=== PATIENT | male | born 1955 | race Caucasian/White ===

== ENCOUNTER 2020-06-18 00:56 | Outpatient (CLI) | payer OTHER, SELFPAY ==
[2020-06-18 18:41] LABS: SARS-CoV-2 RNA PCR Negative
== END 2020-06-18 00:57 | disposition home or self-care (01) ==
LOC: ANHCOVIDDT 00:56
PROVIDERS: PCP Family Medicine; Visit Provider Specialist
DX: Z01.812 Encounter for preprocedural laboratory examination (principal); Z20.828 Contact with and (suspected) exposure to other viral communicable diseases
CPT/HCPCS: 87635; C9803; U0003

== ENCOUNTER 2020-06-20 05:29 | Day surgery (SDC) | payer OTHER, SELFPAY ==
[2020-06-19 16:07] VITALS: BMI 33.7
[2020-06-20] VITALS (22 sets, daily range): BP systolic 121–159; BP diastolic 71–108; PULSE 61–81; RESP 11–18; TEMP 36.4–36.6; O2SAT 97–99; BMI 33.7
[2020-06-20 09:28] LABS: Basophils Percent Auto 0.7 % (0.2-1.2); Eosinophils Absolute Auto 0.2 K/mm3 (0-0.3); Eosinophils Percent Auto 4.2 % (0-4.4); Hematocrit 39.8 % (42.0-52.0); Hemoglobin 13.4 g/dL (14.0-18.0); Immature Granulocyte Absolute 0.03 K/mm3 (0.00-0.031); Immature Granulocyte Percent A 0.5 % (0-0.5); Lymphocytes Absolute Auto 1.24 K/mm3 (0.9-3.2); Lymphocytes Percent Auto 22.5 % (18.3-44.2); Mean Corpuscular HGB Conc 33.7 g/dl (32-36); Mean Corpuscular Hemoglobin 29.1 pg (26-34); Mean Corpuscular Volume 86.5 fl (80-100); Mean Platelet Volume 9.3 fl (7.4-10.4); Monocytes Absolute Auto 0.4 K/mm3 (0.1-0.6); Monocytes Percent Auto 7.6 % (2.6-8.5); Neutrophils Absolute Auto 3.5 K/mm3 (1.3-6.7); Neutrophils Percent Auto 64.5 % (45.5-73.1); Platelet Count Result 276 k/mm3 (150-375); Red Cell Distribution Width 12.9 % (11.5-14.5); White Blood Count 5.5 K/mm3 (4.5-10.0)
[2020-06-20 09:36] LABS: Prothrombin Time 13.2 Seconds (11.1-14.7)
[2020-06-20 09:41] LABS: Anion Gap 9 mmol/L (8-16); Blood Urea Nitrogen 16 mg/dL (9-20); Calcium 9.1 mg/dL (8.4-10.2); Carbon Dioxide 22 mmol/L (22-30); Chloride 106 mmol/L (98-107); Estimated CRCL calculation 81 ml/min; Estimated Glomerular Filt Rate > 60; Glucose 109 mg/dL (75-110); Potassium 3.9 mmol/L (3.4-5.0); Sodium 137 mmol/L (137-145)
--- NOTE | 2020-06-20 13:00 | WPDMODSED ---
Moderate Sedation Note-Pt Data Patient Data Diagnosis: Exertional chest discomfort with hypotension abnormal nuclear stress test Present Complaint: symptoms of chest discomfort dyspnea and hypotension with exercise / yd work Procedure to be performed/Plan: left heart catheterization Allergies Allergy/AdvReac Type Severity Reaction Status Date / Time Penicillins Allergy Unknown Unknown Verified 11/20/19 09:59 Home Medications Medication Instructions Recorded Confirmed Type cholecalciferol (vitamin D3) 125 5,000 unit PO DAILY 11/20/19 06/20/20 History mcg (5,000 unit) tablet tamsulosin 0.4 mg capsule 0.4 mg PO DAILY 11/20/19 06/20/20 History vardenafil 20 mg tablet 20 mg PO PRN 11/20/19 06/20/20 History zolpidem 10 mg tablet 10 mg PO .QHS tablet 11/20/19 06/20/20 History fenofibric acid (choline) 135 mg 135 mg PO DAILY #90 cap 03/26/20 06/20/20 Rx capsule,delayed release aspirin 81 mg PO DAILY 06/20/20 06/20/20 History cetirizine [Zyrtec] 10 mg PO DAILY 06/20/20 06/20/20 History fenofibric acid (choline) 135 mg PO DAILY 06/20/20 06/20/20 History [Trilipix] Current Medications: Active Medications Sodium Chloride (Normal Saline Iv) 500 mls @ 100 mls/hr IV CONT .Q5H YONAS Sedation/Anesthesia: No previous sedation/anesthesia problems (including family history). [facility] Past Medical History Medical History (Updated 06/11/20 @ 10:28 by Alber Muller PA-C) Dizziness Encounter for colorectal cancer screening Tachycardia Family History Family History (Updated 06/04/16 @ 23:19 by DOCTOR UNKNOWN) Mother Hypertension Sibling Family history of malignant neoplasm Family history of malignant neoplasm of breast in first degree relative Social History Social History (Updated 11/20/19 @ 10:01 by Dorothy Lua) Smoking packs per day: 0 Smoking cigarettes per day: 0.0 Smoking status: Never smoker Second hand tobacco smoke exposure: No Alcohol intake: current Substance use: never Substance use type: does not use Living arrangements: alone Gender identity (if verbalized by the patient): Male Mod Sed Physical Exam Physical Exam Pre Procedural Exam: Normal: Throat, Airway, Lungs, Heart Size, Heart Rate, Heart Rhythm, Neuro Exam and Extremities and Variation: Appearance ( overweight white male BMI 33.8) Hours since solid foods: 12 Hours since liquid intake: 12 Internal Medicine - PN: Obj Da Vital Signs Vital Signs: Vital Signs - 24 hr 06/20/20 09:25 Temperature 36.6 C Pulse Rate 74 Respiratory Rate 15 Blood Pressure 129/84 Pulse Oximetry 98 Meds/Results Medications: Active Medications Generic Name Dose Route Start Last Admin Trade Name Pamela PRN Reason Stop Dose Admin Sodium Chloride 500 mls @ 100 mls/hr 06/20/20 06:00 Normal Saline Iv IV CONT .Q5H YONAS Labs CBC & Chem 7: 06/20/20 09:20 06/20/20 09:20 Labs: Laboratory Results - last 24 hr 06/20/20 06/20/20 06/20/20 09:20 09:20 09:20 WBC 5.5 RBC 4.60 Hgb 13.4 L Hct 39.8 L MCV 86.5 MCH 29.1 MCHC 33.7 RDW 12.9 Plt Count 276 MPV 9.3 Immature Gran % (Auto) 0.5 Neut % (Auto) 64.5 Lymph % (Auto) 22.5 Pickett % (Auto) 7.6 Eos % (Auto) 4.2 Baso % (Auto) 0.7 Lymph # (Auto) 1.24 Pickett # (Auto) 0.4 Eos # (Auto) 0.2 Baso # (Auto) 0.0 Abs Immat Gran (auto) 0.03 Absolute Neuts (auto) 3.5 Absolute Nucleated RBC 0.0 Nucleated RBC % 0.0 PT 13.2 INR 1.0 Sodium 137 Potassium 3.9 Chloride 106 Carbon Dioxide 22 Anion Gap 9 BUN 16 Creatinine 1.00 Estim Creat Clear Calc 81 Estimated GFR > 60 Glucose 109 Calcium 9.1 ASA Classification/Sedation ASA Classification/Sedation ASA Class: II Emergent: No Risks: Risks, benefits and alternatives explained and patient/family accepted plan for sedation. Patient re-evaluated immediately prior to sedation.
--- NOTE | 2020-06-20 13:03 | ECG_ITS ---
Measurements Intervals [place] Rate: 75 P: 36 MA: 197 QRS: 30 QRSD: 91 T: 11 QT: 375 QTc: 420 Interpretive Statements SINUS RHYTHM BASELINE ARTIFACT- I, III, AVR, AVL, AVF, V1-V2 BORDERLINE ECG Electronically Signed On 06-20-2020 13:43:40 CDT by Kwesi Avery D.O.
--- NOTE | 2020-06-20 13:07 | WPDCARDPROC ---
Cardiac Cath Procedure Note Date of procedure:: 06/20/20 Performing physician:: Alber Sofia MD Indication:: chest discomfort, hypotension with exertion abnormal nuclear stress test Brief clinical history:: this is a 65-year-old man without previous documented coronary disease who has been experiencing exertional fatigue/ chest pain and has observed hypotension following exertion with a home blood pressure cuff. A nuclear stress test was abnormal suggesting inferior ischemia. Angiography was then recommended. Procedure Procedure performed:: Left heart catheterization with left ventriculography, coronary angiography and percutaneous revascularization Sedation/Medication given:: fentanyl 50 mg Versed 2 mg case start time 12:20 p.m. case end time 12:58 p.m. sedation provided by Ashli Bajwa RN, trained observer Access site:: right femoral artery Estimated blood loss:: 15-20 cc Procedure note:: patient brought to the catheterization lab in the postabsorptive state where the right femoral triangle was prepared in the normal fashion. Anesthesia was provided with 1% lidocaine locally. Using modified Seldinger technique the right common femoral artery was punctured and a 5 [place] vascular sheath was placed. A 5 [place] angled pigtail catheter was used to measure left-sided hemodynamics and injected LV g in the ER AO projection. Following this standard 5 [place] FL4 catheter was used to engage inject the left coronary artery for angiography in multiple projections. Following this a 5 [place] JR4 catheter was to engage inject the right coronary artery. The cine angiograms were then reviewed and PCI of the circumflex was recommended and carried out as detailed below. Following this the sheath was sutured into position he was taken to the holding area for recovery. Prior to starting PCI he was systemically anticoagulated with bolus and infusion of Angiomax and he received aspirin and Brilinta 180 mg orally for anti-platelet therapy. Findings:: Central aortic pressure was 138 over 78 left ventricle 138/2 end-diastolic pressure 15. There was no gradient upon pullback across the aortic valve. The left ventricle is normal in size all segments in the CLARKE projection contract well. The global ejection fraction is visually estimated to be 55%. The left main coronary artery is widely patent the LAD is a moderate caliber artery extending down to the apex. There is minimal luminal irregularity in the LAD but no significant lesions in the LAD itself. There is about 60-70% stenosis at the ostium of a small mid diagonal branch and about 70% stenosis and a sub branch of this diagonal which is a bifurcating vessel. Circumflex is a large caliber artery there are 2 very small proximal marginal branches and a very large 3rd marginal branch. Following this there is a posterior circumflex vessel as well. The circumflex trunk just prior to the bifurcation of the large marginal and the posterior branch has a eccentric stenosis of 80%. This jeopardized is a very large 3rd OM branch as described above. Right coronary artery is a medium caliber artery it is dominant to the posterior circulation. There is mild long tubular stenosis in the RCA from the 1st portion down to the 2nd portion. This represents no more than about 30-40% stenosis and has NAN 3 flow does not appear to be flow limiting. circumflex intervention was carried out using a 6 [place] CLS 3.5 guiding catheter. The wire used was a 0.014 BMW. This was placed into the large OM branch. The lesion was pre-dilated with a 3.5 x 15 mm emerge balloon. The lesion was then stented using a 3.5 x 15 mm Wanderableiro sirolimus eluting stent with a very good anatomical result. The stent was placed just prior to the bifurcation of the trunk into the large 3rd OM in the posterior circumflex. Conclusion:: 1. Coronary artery disease with high-grade stenosis in the trunk of the circumflex which is just bonnie
--- NOTE | 2020-06-20 18:09 | SUR.PHASEII ---
1730-pt transferred to IMU room 210. JOSÉ ANTONIO Beyer has assumed care of pt. Groin soft and non-tender, no evidence of bleeding or hematoma noted. strong right pedal pulse noted. No distress noted upon transfer.
--- NOTE | 2020-06-20 19:02 | PC.NURSE ---
Received patient from chest pain center. Patient A&O x3. Groin site soft, nontender, no bleeding. patient on room air and on bed rest until 22:30
[2020-06-20] MEDS: SODIUM CHLORIDE 0.9% IV 1,000 ML 125 ML IV CONT (23:21)
[2020-06-20] MEDS: TICAGRELOR 90 MG TABLET PO (23:22)
[2020-06-20] MEDS: METOPROLOL TARTRATE 25 MG TABLET PO (23:24)
[2020-06-20] MEDS: ZOLPIDEM TARTRATE 5 MG TABLET 10 MG PO (23:27)
[2020-06-21] VITALS: PULSE 73
[2020-06-21 02:00] VITALS: PULSE 74
[2020-06-21 04:00] VITALS: BP 131/79; PULSE 75; RESP 16; TEMP 36.1; O2SAT 98
--- NOTE | 2020-06-21 05:11 | ECG_ITS ---
Measurements Intervals [place] Rate: 74 P: 17 MT: 198 QRS: 10 QRSD: 92 T: 22 QT: 366 QTc: 408 Interpretive Statements SINUS RHYTHM LOW QRS VOLTAGE IN PRECORDIAL LEADS DELAYED PRECORDIAL R/S TRANSITION BORDERLINE ECG Electronically Signed On 06-21-2020 8:04:50 CDT by Kwesi Avery D.O.
[2020-06-21 06:00] VITALS: PULSE 70
[2020-06-21 08:00] VITALS: BP 118/73; PULSE 74; PULSE 76; RESP 16; TEMP 36.5; O2SAT 97
[2020-06-21] MEDS: ROSUVASTATIN 10 MG TABLET PO (08:43)
[2020-06-21] MEDS: TICAGRELOR 90 MG TABLET PO (08:43)
[2020-06-21] MEDS: TAMSULOSIN HCL 0.4 MG CAPSULE PO (08:43)
[2020-06-21] MEDS: LORATADINE 10 MG TABLET PO (08:43)
[2020-06-21] MEDS: METOPROLOL TARTRATE 25 MG TABLET PO (08:43)
[2020-06-21] MEDS: ASPIRIN 81 MG CHEWABLE TABLET PO (08:46)
[2020-06-21 09:43] VITALS: PULSE 64
--- NOTE | 2020-06-21 10:48 | PM.PNCARD ---
Progress Note: A&P Additional Plan 65-year-old man with: symptoms that are somewhat atypical of angina with both exertional and nonexertional chest discomfort and observation of hypotension with exercise. Catheterization yesterday demonstrated high-grade stenosis in the trunk of the circumflex just before the largest OM branch. He also had a long area of mild disease in the right coronary artery which did not appear to be flow limiting. PCI of the circumflex lesion was performed using a 3.5 mm Orsiro drug-eluting stent with good anatomical result. Plans are for discharge today and follow up in the office with Dr. Madison. Alber Sofia MD [facility] Subjective Date/time seen: date of service:06/21/20 10:48 Interval history: Follow-up visit in 65-year-old man admitted yesterday for catheterization who underwent catheterization and PCI of the circumflex patient feels well this morning is asymptomatic. Lengthy and detailed discussion regarding his medications especially the importance of dual anti-platelet therapy. Exam Const: General: comfortable and no acute distress HENMT: Mouth: Yes moist mucous membranes Eyes: Sclera: sclerae normal Pupils: Equal, round and reactive pupils present Neck: Neck: supple and no JVD Thyroid: thyroid normal Other: Carotid pulses normal no bruits evident Resp: Effort & Inspection: normal respiratory effort Auscultation: clear to auscultation bilaterally Cardio: Rate: regular rate Rhythm: regular rhythm Other: no murmur no gallop no rub GI: Auscultation: normal bowel sounds Skin: General skin exam: normal color Neuro: Cognition (Neuro): normal cognition Extrem: General: normal to inspection Other: right groin puncture site looks normal no ecchymosis hematoma or bruit Objective Data Vital Signs Vital Signs: Vital Signs - 24 hr 06/20/20 13:15 06/20/20 13:30 06/20/20 13:45 Temperature 36.4 C Pulse Rate 77 70 68 Respiratory Rate 14 14 14 Blood Pressure 128/88 146/88 H 141/88 H Pulse Oximetry 99 98 98 06/20/20 14:00 06/20/20 14:30 06/20/20 15:00 Temperature Pulse Rate 61 67 65 Respiratory Rate 14 15 14 Blood Pressure 146/90 H 125/97 H 137/97 H Pulse Oximetry 98 98 97 06/20/20 15:55 06/20/20 16:05 06/20/20 16:20 Temperature Pulse Rate 70 81 76 Respiratory Rate 15 11 L 15 Blood Pressure 159/95 H 145/96 H 139/92 H Pulse Oximetry 99 97 97 06/20/20 16:30 06/20/20 16:45 06/20/20 17:01 Temperature Pulse Rate 74 77 71 Respiratory Rate 15 15 16 Blood Pressure 134/108 H 130/91 H 146/81 H Pulse Oximetry 97 98 97 06/20/20 17:15 06/20/20 18:00 06/20/20 18:59 Temperature 36.5 C 36.6 C Pulse Rate 67 70 76 Respiratory Rate 15 18 16 Blood Pressure 137/80 133/80 144/71 H Pulse Oximetry 98 98 98 06/20/20 19:56 06/20/20 20:00 06/20/20 21:00 Temperature 36.6 C 36.5 C Pulse Rate 73 76 76 Respiratory Rate 15 15 Blood Pressure 133/75 140/76 Pulse Oximetry 97 97 06/20/20 22:00 06/20/20 23:00 06/20/20 23:24 Temperature 36.6 C 36.6 C Pulse Rate 76 71 72 Respiratory Rate 16 15 Blood Pressure 141/75 H 121/77 Pulse Oximetry 97 97 06/21/20 00:00 06/21/20 02:00 06/21/20 04:00 Temperature 36.1 C L Pulse Rate 73 74 75 Respiratory Rate 16 Blood Pressure 131/79 Pulse Oximetry 98 06/21/20 06:00 06/21/20 08:00 06/21/20 09:43 Temperature 36.5 C Pulse Rate 70 74 64 Respiratory Rate 16 Blood Pressure 118/73 Pulse Oximetry 97 Intake/Output Intake/Output: Intake & Output 06/18/20 06/19/20 06/20/20 06/21/20 23:59 23:59 23:59 23:59 Intake Total 840 725 Output Total 500 Balance 340 725 Meds/Results Medications: Active Medications Generic Name Dose Route Start Last Admin Trade Name Freq PRN Reason Stop Dose Admin Aspirin 81 mg 06/21/20 08:00 06/21/20 08:46 Aspirin Chewable PO 81 mg DAILY@0800 YONAS Administration Loratadine 10 mg 06/21/20 09:00 06/21/20 08:43 Cl
--- NOTE | 2020-06-21 10:51 | PM.DS ---
DS: Admitting Diagnosis Admitting Diagnosis Admitting Diagnosis: abn stress test, SHERIDAN, decrease BP with exhertion DS: Summary Hospital Course Reason for hospitalization: 65-year-old man hospitalized as an outpatient for elective left heart catheterization to investigate symptoms of chest discomfort and abnormal stress test findings. Hospital Course: Patient was admitted to the hospital on the morning of catheterization. He underwent left heart catheterization uneventfully via the right femoral artery. For the details please see the separately dictated operative/ procedure note. In summary he was found to have a discrete high-grade stenosis in the trunk of the circumflex just before the largest OM branch. He was also found to have a mild area of long disease in the right proximal to mid RCA that was not felt to be flow limiting. PCI of the circumflex lesion was recommended and carried out uneventfully. He received a 3.5 mm Orsiro drug-eluting stent with a good anatomical result. The patient had no post PCI complications sheath was removed today he is ambulatory and asymptomatic there is no evidence of a groin hematoma any appears to be a good candidate for discharge. He was started on Brilinta along with his low-dose aspirin for dual anti-platelet therapy was also started on metoprolol 25 mg q.12 hours since he now has the diagnosis of coronary disease. Patient will be discharged and follow up in the office is already arranged. Status at Discharge Functional status at discharge: independent ambulation Overall status at discharge: patient is back to baseline Time Spent with Patient Time attestation: Total time spent providing and/or coordinating discharge services: Time spent: Less than 30 minutes Exam Const: General: comfortable and no acute distress HENMT: Mouth: Yes moist mucous membranes Eyes: Sclera: sclerae normal Pupils: Equal, round and reactive pupils present Neck: Neck: supple and no JVD Thyroid: thyroid normal Other: No carotid bruits Resp: Effort & Inspection: normal respiratory effort Auscultation: clear to auscultation bilaterally Cardio: Rate: regular rate Rhythm: regular rhythm Other: no murmur no gallop no rub GI: GI Palp: Yes Soft to palpation Auscultation: normal bowel sounds Skin: General skin exam: normal color Extrem: General: normal to inspection Other: right femoral artery access site looks fine no hematoma no ecchymosis no bruit normal pulse in the right lower extremity Discharge Plan Discharge Patient Disposition: Home, Self-Care Discharge Instructions: ACTIVITY: No driving until June. This is for short distances only. No lifting, pushing or pulling more than 10 pounds for 1 week. No strenuous exercise or activity for 1 week. May shower but no tub baths or swimming pool for 1 week. Avoid commercial hot tubs. They are too hot. Stay hydrated. DO NOT STOP YOUR MEDICATIONS! 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 If you have chest pain unrelieved by rest call 911 immediately If you miss one dose of Brilinta take a tablet at the next time due. If you miss 2 doses take a tablet when you remember and resume at the next time due FOLLOW-UP: Follow up with [facility] office at [facility] [address] Madison on July 21, 2020 at 1:15 p.m. Please arrive by 1:00 p.m. for your appointment. Bring photo ID, insurance card(s) and current medication list. DIET: heart healthy WOUND CARE: May remove gauze dressing tomorrow and place Band aid over site. Remove Band aid on Tuesday a
== END 2020-06-21 12:49 | disposition home or self-care (01) ==
LOC: ANHCATHLAB 15:00 → ANHIMU 18:44
PROVIDERS: PCP Family Medicine; Visit Provider Specialist
PROC: 4A023N7 Measurement of Cardiac Sampling and Pressure, Left Heart, Percutaneous Approach (ICD-10-PCS; CPT 93452; principal; 2020-06-20 10:00)
PROC: (CPT 92928; 2020-06-20 10:00)
DX: I25.10 Atherosclerotic heart disease of native coronary artery without angina pectoris (principal); I10 Essential (primary) hypertension; E78.5 Hyperlipidemia, unspecified; Z79.01 Long term (current) use of anticoagulants; Z79.899 Other long term (current) drug therapy; Z79.82 Long term (current) use of aspirin; Z88.0 Allergy status to penicillin
CPT/HCPCS: 36415; 80048; 85025; 85610; 93005; 93458; A9270; C1725; C1769; C1874; C1887; C1894; C9600; J0583; J1644; J2250; J3010; J7030; J7040

== ENCOUNTER 2020-10-22 10:30 | Outpatient (RCR) | payer OTHER, SELFPAY ==
[2020-08-01 15:13] VITALS: BP 118/50; PULSE 77; RESP 16; TEMP 36.6; O2SAT 97
== END 2020-10-22 11:19 | disposition home or self-care (01) ==
LOC: ANHCPREHAB 10:30
PROVIDERS: PCP Family Medicine; Visit Provider Internal Medicine Cardiovascular Disease
DX: Z95.5 Presence of coronary angioplasty implant and graft (principal)
CPT/HCPCS: 93798

== ENCOUNTER 2022-07-11 08:16 | Emergency (ER) | payer MEDICARE, OTHER, SELFPAY ==
--- NOTE | ~2022-07-11 | XR_ITS ---
EXAMINATION: XR knee RT min 4V DATE: 07/11/2022 08:44 INDICATION: Right knee pain. Fall. TECHNIQUE: 4 views of right knee were obtained. COMPARISON: None. FINDINGS: Bone alignment is normal. No fracture. There is mild tricompartmental osteoarthritis. No kn ee joint effusion. There is prepatellar and superficial infrapatellar soft tissue swelling. IMPRESSION: 1. Mild right knee osteoarthritis. Reviewed, dictated and finalized at location A.
--- NOTE | ~2022-07-11 | XR_ITS ---
EXAMINATION: XR hand LT min 3V DATE: 07/11/2022 08:44 INDICATION: Left hand pain. Fall. TECHNIQUE: 3 views of left hand were obtained. COMPARISON: None. FINDINGS: Bone alignment is normal. No fracture. There is mild osteoarthritis of distal radioulnar avery int, triscaphe joint, first carpometacarpal joint, and many of the metacarpophalangeal joints and int erphalangeal joints. There is moderate osteoarthritis of second and third metacarpophalangeal joints, first interphalangeal joint, and third and fifth distal interphalangeal joints. IMPRESSION: 1. Polyarticular osteoarthritis. Reviewed, dictated and finalized at location A.
[2022-07-11 08:27] VITALS: BP 133/86; PULSE 81; RESP 16; TEMP 37; O2SAT 99
--- NOTE | 2022-07-11 08:35 | ED.GENADULT ---
HPI - General Adult General Chief complaint: Fall Stated complaint: left hand and knees injury Source: patient Mode of arrival: ambulatory Limitations: no limitations History of Present Illness HPI narrative: Patient presents for evaluation after experiencing a ground-level fall yesterday. He indicates he was playing with his grandchild and tripped over his feet. He was outdoors and landed on asphalt surface. He did not hit his head. No LOC. He is not on any blood thinners. He now has pain in both knees, left shoulder and left hand. Pain in right knee is 3/10, left knee 2/10, left shoulder 1/10 and left hand 7/10. He is right hand dominant. No paresthesias. He has not taken any medication for his pain. No loss of ROM in left shoulder or in either knee. Movement makes his pain worse. No additional complaints or concerns. Related Data Home Medications Medication Instructions Recorded Confirmed cholecalciferol (vitamin D3) 125 5,000 unit PO DAILY 11/20/19 05/25/22 mcg (5,000 unit) tablet tamsulosin 0.4 mg capsule (Flomax) 0.4 mg PO DAILY 11/20/19 05/25/22 aspirin 81 mg chewable tablet 81 mg PO DAILY 06/20/20 05/25/22 cetirizine 10 mg tablet (Zyrtec) 10 mg PO HS 06/20/20 05/25/22 metoprolol tartrate 25 mg tablet 25 mg BID 08/01/20 05/25/22 Allergies Allergy/AdvReac Type Severity Reaction Status Date / Time Penicillins Allergy Unknown Unknown Verified 05/25/22 13:30 Review of Systems Review of Systems: CONSTITUTIONAL: Denies fever, chills, or sweats. EYES: Denies visual changes, redness, or discharge. ENT: Denies rhinorrhea, congestion, sore throat, or otalgia. CARDIOVASCULAR: Denies chest pain, palpitations, or edema. RESPIRATORY: Denies cough or dyspnea. GASTROINTESTINAL: Denies abdominal pain, nausea, vomiting, or diarrhea. GENITOURINARY: Denies dysuria or hematuria. SKIN: Reports abrasions to left shoulder and left knee. MUSCULOSKELETAL:Reports pain in left shoulder, left hand and bilateral knees NEUROLOGIC: Denies headache, numbness, dizziness, or weakness. PSYCHIATRIC: Denies anxiety or depression. [facility] Past Medical History Medical History (Updated 07/12/22 @ 00:01 by Minnie Gómez) CAD (coronary artery disease) Dizziness Encounter for colorectal cancer screening Hand contusion HLD (hyperlipidemia) Hypertension with heart disease Obesity Tachycardia Surgical History Surgical History History of repair of congenital cleft palate S/P coronary artery stent placement Family History Family History Mother Hypertension Sibling Family history of malignant neoplasm Family history of malignant neoplasm of breast in first degree relative Social History Social History Social History: Smoking status: Never smoker Second hand tobacco smoke exposure: No Alcohol intake: current Alcohol use details: Rarely Substance use: never Substance use type: does not use Gender identity (if verbalized by the patient): Male Sexual Orientation (if Verbalized by the Patient): Straight or Heterosexual Spiritual care concerns: No Exam Narrative: GENERAL: Well-appearing, well-nourished, and in no acute distress. HEAD: Normocephalic, atraumatic. EYES: PERRLA and EOMI. ENT: Nares clear, no rhinorrhea or epistaxis. Mucous membranes moist. Oropharynx without tonsillar hypertrophy exudate or other lesions. Bilateral TMs pearly george nonbulging NECK: Supple. No adenopathy or masses. No carotid bruits or JVD CHEST: Clear to auscultation. No respiratory distress. No wheezes rales or rhonchi HEART: Regular rate and rhythm. No murmur heard. Normal peripheral pulses. ABDOMEN: Soft, nontender, nondistended, normal active bowel sounds. EXTREMITIES: Full ROM of left shoulder. No crepitus or deformity. No tenderness i
== END 2022-07-11 09:24 | disposition home or self-care (01) ==
PROVIDERS: Emergency Provider Nurse Practitioner; PCP Family Medicine
DX: S60.222A Contusion of left hand, initial encounter (principal); S80.01XA Contusion of right knee, initial encounter; M25.562 Pain in left knee; M25.512 Pain in left shoulder; W18.30XA Fall on same level, unspecified, initial encounter; Z79.82 Long term (current) use of aspirin; I25.10 Atherosclerotic heart disease of native coronary artery without angina pectoris; E78.5 Hyperlipidemia, unspecified; E66.9 Obesity, unspecified; Z68.33 Body mass index [BMI] 33.0-33.9, adult; I10 Essential (primary) hypertension
CPT/HCPCS: 73130; 73564; 99214; G0463

== ENCOUNTER 2022-09-21 11:00 | Outpatient (RCR) | payer MEDICARE, OTHER, SELFPAY ==
--- NOTE | 2022-08-23 09:48 | OTOPEVAL1 ---
Assessment and note entered by Justine Coleman OTR/[facility] Evaluation Information Assessment Status Evaluation Diagnosis fall with sprain of middle/ring finger of L UE Onset 07/10/2022 Subjective Information Patient reports fell when running on asphalt with hand to catch himself resulting in bending wrist/ fingers of L hand backwards into hyper extension. Patient reports since then there has been swelling and pain in the middle and ring fingers of the L hand. Patient reports difficulty with picking up items, has pain and swelling in fingers with gripping. Reported Pain Level Pain Score 0,0: Self Report Assessment OT Clinical Summary Duane is a 67 year old male presenting to outpatient OT following a fall resulting in pain, stiffness, and swelling in L UE middle and ring fingers. Patient reports difficulty with gripping and carrying large objects due to pain and stiffness of L UE middle/ring fingers. 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 Patient would benefit from skilled OT to increase ROM/strength of L UE, use of modalities and manual therapies for decreased pain and improve functional use of L UE hand during daily tasks. Plan of Care Interventions Therapeutic Exercise,Manual Therapy,Therapeutic Activities,Hot Pack/Cold Pack,Ultrasound,Paraffin, Other OT Services Indicated Yes These treatments will address the objective and functional deficits as defined above. The patient will be advanced safely and appropriately in order for the patient to progress towards his/her prior level of function. Additional exercises will be introduced and as well as a comprehensive home exercise program upon discharge, if needed, ?to ensure carryover of functional gains achieved in the clinic. This treatment plan has been reviewed and agreement upon by the patient.
--- NOTE | 2022-09-21 11:30 | OTOPDC ---
Assessment and note entered by PORTIA Singleton/[employer] Evaluation Information Assessment Status Discharge Diagnosis fall with sprain of middle/ring finger of L UE Onset 07/10/2022 Subjective Information Fall resulting in swelling, pain, stiffness of L UE middle/ring fingers. Patient reports since attending therapy has more motion in hand and feels L hand is close to normal. 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 Reported Pain Level Pain Score 0,0: Self Report Assessment OT Clinical Summary Duane is a 67 year old male presenting to outpatient OT following a fall resulting in pain, stiffness, and swelling in L UE middle and ring fingers. Patient has attended x4 therapy treatments with focus on increasing L UE middle/ ring finger ROM, strength. 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 No skilled OT is indicated at this time, patient is agreeable to discharge, independent with all HEP materials. Plan of Care OT Services Indicated No
== END 2022-09-21 14:08 | disposition home or self-care (01) ==
LOC: ANHOT 11:00
PROVIDERS: PCP Family Medicine; Visit Provider Nurse Practitioner
DX: S63.619D Unspecified sprain of unspecified finger, subsequent encounter (principal)
CPT/HCPCS: 97018; 97110; 97140; 97165; 97168

== ENCOUNTER 2023-02-25 15:23 | Outpatient (CLI) | payer MEDICARE, OTHER, SELFPAY ==
--- NOTE | ~2023-02-25 | XR_ITS ---
Left ankle Technique: AP, oblique, and lateral views were obtained. Clinical History: Pain Findings: No acute fracture or dislocation is seen. There is moderate to severe degenerative change o f the tibiotalar joint. Remaining joint spaces appear intact. Soft tissues are otherwise unremarkable . Impression: Moderate to severe degenerative change of the tibiotalar joint. No acute fracture or dislocation seen. Reviewed, dictated and finalized at location . Impression: Moderate to severe degenerative change of the tibiotalar joint. No acute fracture or dislocation seen.
--- NOTE | ~2023-02-25 | XR_ITS ---
Left foot Technique: AP, oblique, and lateral views were obtained. Clinical History: Pain Findings: No acute fracture or dislocation is seen. Osseous alignment is anatomic. Probable moderate degenerative change of the tibiotalar joint noted. Remaining joint spaces are intact. Soft tissues ar e unremarkable. Impression: Moderate degenerative change of the tibiotalar joint. No other significant findings. Reviewed, dictated and finalized at location . Impression: Moderate degenerative change of the tibiotalar joint. No other significant findings.
== END 2023-02-25 15:24 | disposition home or self-care (01) ==
PROVIDERS: PCP Family Medicine; Visit Provider Physician Assistant
DX: M79.672 Pain in left foot (principal); M25.572 Pain in left ankle and joints of left foot
CPT/HCPCS: 73610; 73630

== ENCOUNTER 2023-11-23 16:23 | Emergency (ER) | payer MEDICARE, OTHER, SELFPAY ==
[2023-11-23 16:34] VITALS: BP 136/98; PULSE 98; RESP 16; TEMP 36.4; O2SAT 99
--- NOTE | 2023-11-23 16:56 | ED.BACK ---
HPI - Back Pain/Injury General Chief Complaint: Back Pain/Injury Stated Complaint: LOW BACK PAIN Time Seen by Provider: 11/23/23 16:38 Source: patient and RN notes reviewed History of Present Illness HPI Narrative: Patient is 68-year-old male who presents to urgent care with complaints of lower left back pain. Patient states it started 2 days ago. Denies any cause for the back pain and states he has had intermittently but not where he screamed out in pain. Patient states that with increased movement, twisting or bending he has severe sharp pain. Patient has tried Tylenol today with mild improvement. Patient denies any urinary symptoms or history of kidney stones. Denies any hematuria. No other acute complaints. No acute distress noted. Patient aware of the plan of care. Some parts of this dictation were generated by voice recognition software and may contain typographical and/or grammatical inaccuracies. Related Data Home Medications Medication Instructions Recorded Confirmed cholecalciferol (vitamin D3) 125 5,000 unit PO DAILY 11/20/19 11/23/23 mcg (5,000 unit) tablet tamsulosin 0.4 mg capsule (Flomax) 0.4 mg PO DAILY 11/20/19 11/23/23 cetirizine 10 mg tablet (Zyrtec) 10 mg PO HS 06/20/20 11/23/23 metoprolol tartrate 25 mg tablet 25 mg BID 08/01/20 11/23/23 aspirin 81 mg capsule 81 mg PO DAILY 10/20/22 11/23/23 Allergies Allergy/AdvReac Type Severity Reaction Status Date / Time Penicillins Allergy Unknown Hives Verified 11/23/23 16:51 Review of Systems Review of Systems: CONSTITUTIONAL: Denies fever, chills, or sweats. EYES: Denies visual changes, redness, or discharge. ENT: Denies rhinorrhea, congestion, sore throat, or otalgia. CARDIOVASCULAR: Denies chest pain, palpitations, or edema. RESPIRATORY: Denies cough or dyspnea. GASTROINTESTINAL: Denies abdominal pain, nausea, vomiting, or diarrhea. GENITOURINARY: Denies dysuria or hematuria. SKIN: Denies rash or itching. MUSCULOSKELETAL: Reports of left lower back pain NEUROLOGIC: Denies headache, numbness, or weakness. All other systems reviewed are negative, except as documented in HPI. [facility] Past Medical History Medical History CAD (coronary artery disease) Dizziness Encounter for colorectal cancer screening Hand contusion Heart disease HLD (hyperlipidemia) Hypertension with heart disease Obesity Tachycardia Surgical History Surgical History History of repair of congenital cleft palate S/P coronary artery stent placement Family History Family History Mother Hypertension Sibling Family history of malignant neoplasm Family history of malignant neoplasm of breast in first degree relative Other Breast cancer Heart disease Malignant neoplasm of prostate Social History Social History Social History: Smoking status: Never smoker Second hand tobacco smoke exposure: No Alcohol intake: current Alcohol use details: Rarely Substance use: never Substance use type: does not use Living arrangements: alone Occupation/Education: retired Gender identity (if verbalized by the patient): Male Sexual Orientation (if Verbalized by the Patient): Straight or Heterosexual Spiritual care concerns: No Comments At the time of my signature, I reviewed and agree with the nursing past medical, surgical, social, and family history. There is no relevant family history pertinent to the patient complaint. Exam Narrative: GENERAL: This is a well-nourished, well-developed patient, in no apparent distress. HEAD: normocephalic, atraumatic. EYES: PERRL. Sclera clear/white. Vision is grossly intact. EARS: External ears normal NOSE: External nose normal with no obvious nasal discharge, nares without
== END 2023-11-23 17:15 | disposition home or self-care (01) ==
PROVIDERS: Emergency Provider Nurse Practitioner Family; PCP Family Medicine
DX: S39.012A Strain of muscle, fascia and tendon of lower back, initial encounter (principal); X58.XXXA Exposure to other specified factors, initial encounter; I25.10 Atherosclerotic heart disease of native coronary artery without angina pectoris; E78.5 Hyperlipidemia, unspecified; I11.9 Hypertensive heart disease without heart failure; E66.9 Obesity, unspecified; Z68.35 Body mass index [BMI] 35.0-35.9, adult; Z95.5 Presence of coronary angioplasty implant and graft
CPT/HCPCS: 81003; 99213; G0463

== ENCOUNTER 2023-11-30 14:05 | Outpatient (CLI) | payer MEDICARE, OTHER, SELFPAY ==
--- NOTE | ~2023-11-30 | XR_ITS ---
[id number] 11/30/2023 14:26 Indication: Right knee pain Procedure: 2 views right knee Comparison: No prior studies for comparison. Findings: There is mild patellofemoral compartment osteoarthritis. No fracture, subluxation or disloc ation. No significant joint effusion. No foreign bodies. Impression: 1: Mild patellofemoral compartment osteoarthritis. Reviewed, dictated and finalized at location B. [employer] Impression: 1: Mild patellofemoral compartment osteoarthritis.
== END 2023-11-30 14:06 | disposition home or self-care (01) ==
PROVIDERS: PCP Family Medicine; Visit Provider Family Medicine
DX: M17.11 Unilateral primary osteoarthritis, right knee (principal)
CPT/HCPCS: 73560

== ENCOUNTER 2024-06-27 13:44 | Outpatient (CLI) | payer MEDICARE, OTHER, SELFPAY ==
--- NOTE | ~2024-06-27 | XR_ITS ---
EXAMINATION: XR shoulder LT min 2V DATE: 06/27/2024 14:01 INDICATION: Left shoulder pain and limited range of motion TECHNIQUE: AP internally and externally rotated, AP oblique externally rotated and transscapular Y vi ews of the left shoulder were obtained. COMPARISON: None FINDINGS: Normal alignment. No fracture.Mild left glenohumeral and acromioclavicular osteoarthritis. Visualize d portions of the left lung are clear. Soft tissues are unremarkable. IMPRESSION: Mild left acromioclavicular and glenoid humeral osteoarthritis. Reviewed, dictated and finalized at location A.
== END 2024-06-27 13:45 | disposition home or self-care (01) ==
LOC: ANHIMG 13:47
PROVIDERS: PCP Family Medicine; Visit Provider Family Medicine
DX: M19.011 Primary osteoarthritis, right shoulder (principal)
CPT/HCPCS: 73030

== ENCOUNTER 2024-07-10 15:48 | Outpatient (CLI) | payer MEDICARE, OTHER, SELFPAY ==
--- NOTE | ~2024-07-10 | MR_ITS ---
EXAMINATION: MR knee RT wo con DATE: 07/10/2024 16:22 INDICATION: Right knee pain. TECHNIQUE: Magnetic resonance imaging (MRI) of the right knee was performed without intravenous contr ast. Sequences included axial PD-weighted FS FSE, coronal PD-weighted FSE and PD-weighted FS FSE, sag ittal PD-weighted FSE, and sagittal T2-weighted FS FSE. COMPARISON: Right knee radiographs 07/11/2022 FINDINGS: Medial compartment: There is a horizontal upper surface tear involving body and posterior horn of medial meniscus. There is partial-thickness cartilage loss of tibial condyle, deep at the medial articular surface where the re is mild subchondral edema-like marrow signal intensity. There is extensive partial thickness carti ashley loss of femoral condyle, deep at the central, medial, and posterior articular surface with moder ate subchondral edema-like signal intensity. Osteophytes are noted. Lateral compartment: Lateral meniscus is normal. There is shallow partial-thickness cartilage loss of femoral condyle and tibial condyle. Osteophytes are noted. Patellofemoral compartment: There is full-thickness cartilage loss of patellar medial and lateral facets with mild subchondral ed maurizio-like marrow signal intensity. There is deep partial-thickness cartilage loss of medial trochlea. Osteophytes are noted. Ligaments and tendons: The anterior and posterior cruciate ligaments are normal. There are changes of prior sprains of media l collateral ligament and fibular collateral ligament characterized by thickening and increased signa l intensity proximally. There is mild patellar tendinopathy. Fluid: There is a moderate-sized knee joint effusion. There is mild prepatellar and superficial infrapatella r bursitis. IMPRESSION: 1. Severe chondrosis of patellofemoral compartment, moderate chondrosis of medial compartment, and mi ld chondrosis of lateral compartment. 2. Tear of medial meniscus. 3. Moderate-sized knee joint effusion. Reviewed, dictated and finalized at location A. IMPRESSION: 1. Severe chondrosis of patellofemoral compartment, moderate chondrosis of medi al compartment, and mild chondrosis of lateral compartment. 2. Tear of medial meniscus. 3. Moderate-sized knee joint effusion.
== END 2024-07-10 15:49 | disposition home or self-care (01) ==
LOC: MICIMG 15:49
PROVIDERS: PCP Family Medicine; Visit Provider Family Medicine
DX: M94.261 Chondromalacia, right knee (principal); S83.241A Other tear of medial meniscus, current injury, right knee, initial encounter; T14.90XA Injury, unspecified, initial encounter; M25.461 Effusion, right knee
CPT/HCPCS: 73721